=== PATIENT | female | born 2000 | race Caucasian/White ===

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

== ENCOUNTER 2021-03-02 09:44 | Outpatient (CLI) | payer OTHER | END 2021-03-02 10:00 | disposition home or self-care (01) | LOC: MAMO-SONO 09:44 | PROVIDERS: ATTEND Plastic Surgery | DX: N64.89 Other specified disorders of breast (principal) ==

== ENCOUNTER → 2023-01-22 | Outpatient (CLI) | payer OTHER | END | disposition home or self-care (01) | LOC: SONOGRAMA 10:52 | PROVIDERS: ATTEND Anesthesiology | DX: J98.59 Other diseases of mediastinum, not elsewhere classified (principal); R13.10 Dysphagia, unspecified; E73.9 Lactose intolerance, unspecified; K21.9 Gastro-esophageal reflux disease without esophagitis ==

== ENCOUNTER 2023-01-28 11:15 | Outpatient (CLI) | payer OTHER | END 2023-01-28 12:56 | disposition home or self-care (01) | LOC: MRI 11:15 | PROVIDERS: ATTEND Anesthesiology | DX: D72.818 Other decreased white blood cell count (principal); R10.13 Epigastric pain | CPT/HCPCS: 74183 ==